=== PATIENT | female | born 1995 | race American Indian/Alaskan Native ===

== ENCOUNTER 2021-04-26 17:06 | Emergency (ER) | payer OTHER ==
[2021-04-26 17:25] VITALS: BP 122/80
[2021-04-26] MEDS ORDERED: LIDOCAINE (1%) 10 MG/1 ML VIAL 20 ML MDV INFILTRATI ONE (18:46)
--- NOTE | 2021-04-26 18:46 | Emergency Department Report ---
ED ENT HPI - General Chief complaint: Earache Stated complaint: EARRING EMBEDDED IN LEFT EAR Time Seen by Provider: 04/26/21 17:40 Source: patient Mode of arrival: Ambulatory Limitations: No Limitations - History of Present Illness Initial comments: 25-year-old female presents to the ER today complaining of pain to her left pinna where her piercing is. Patient states that she started noticing discomfort and pain to the area for about a week, today when she tried to remove the earring she was unable to remove it. She is concerned that the back of the earring is now embedded in the skin. She reports increased pain over the past week. She reports mild bleeding this morning but no apparent pus drainage. She states that this piercing she had for a long time and is not new. She reports no additional symptoms at this time. complaint: other (Pain to left pinna, embedded earring) -: week(s) - Related Data Previous Rx's Medication Instructions Recorded Last Taken Type Ibuprofen [Motrin] 600 mg PO Q8H PRN #30 tablet 04/26/21 Unknown Rx cephALEXin [Keflex] 500 mg PO Q6HR #40 capsule 04/26/21 Unknown Rx Allergies Allergy/AdvReac Type Severity Reaction Status Date / Time No Known Allergies Allergy Verified 04/26/21 17:25 ED Dental HPI - General Chief complaint: Earache Stated complaint: EARRING EMBEDDED IN LEFT EAR Time Seen by Provider: 04/26/21 17:40 Source: patient Mode of arrival: Ambulatory Limitations: No Limitations - Related Data Previous Rx's Medication Instructions Recorded Last Taken Type Ibuprofen [Motrin] 600 mg PO Q8H PRN #30 tablet 04/26/21 Unknown Rx cephALEXin [Keflex] 500 mg PO Q6HR #40 capsule 04/26/21 Unknown Rx Allergies Allergy/AdvReac Type Severity Reaction Status Date / Time No Known Allergies Allergy Verified 04/26/21 17:25 ED Review of Systems ROS: Stated complaint: EARRING EMBEDDED IN LEFT EAR Other details as noted in HPI Comment: All other systems reviewed and negative Constitutional: denies: chills, fever Eyes: denies: eye pain, eye discharge, vision change ENT: other (Left pinna pain, swelling, embedded earring). denies: ear pain, throat pain, dental pain, hearing loss, epistaxis Respiratory: denies: cough, shortness of breath, wheezing Cardiovascular: denies: chest pain, palpitations Gastrointestinal: denies: abdominal pain, nausea, diarrhea, constipation, hematemesis, hematochezia Genitourinary: denies: urgency, dysuria, frequency, hematuria, discharge, abnormal menses, dyspareunia Musculoskeletal: denies: back pain, joint swelling, arthralgia Skin: denies: rash, lesions, change in color, change in hair/nails, pruritus Neurological: denies: headache, weakness, numbness, paresthesias, confusion, abnormal gait, vertigo Psychiatric: denies: anxiety, depression, auditory hallucinations, visual hallucinations, homicidal thoughts Hematological/Lymphatic: denies: easy bleeding, easy bruising, swollen glands ED Past Medical Hx - Social History Smoking Status: Never Smoker Substance Use Type: None - Medications Home Medications: Home Medications Medication Instructions Recorded Confirmed Last Taken Type Ibuprofen [Motrin] 600 mg PO Q8H PRN #30 tablet 04/26/21 Unknown Rx cephALEXin [Keflex] 500 mg PO Q6HR #40 capsule 04/26/21 Unknown Rx ED Physical Exam - General Limitations: No Limitations General appearance: alert, in no apparent distress - Head Head exam: Present: atraumatic, normocephalic, normal inspection - Eye Eye exam: Present: normal appearance, PERRL, EOMI Pupils: Present: normal accommodation - ENT ENT exam: Present: other (Erring noted to the upper aspect of the pinna left ear there is mild swelling, erythema to the posterior aspect where the back of the earring is. The back clamp of the earring not visible, there is concerned that may be embedded in the piercing. Small amount of pus drainage noted.) - Neck Neck exam: Present: normal inspection, full ROM - Respiratory Respiratory exam: Present: normal lung sounds bilaterally. Absent: respiratory distress, wheezes, rales, rhonchi - Cardiovascular Cardiovascular Exam: Present: regular rate, normal rhythm, normal heart sounds - Neurological Exam Neurological exam: Present: alert, oriented X3, CN II-XII intact, normal gait - Psychiatric Psychiatric exam: Present: normal affect, normal mood ED Course Vital Signs 04/26/21 04/26/21 17:10 17:17 Temperature 98.4 F 97.7 F Pulse Rate 87 88 Respiratory 16 18 Rate Blood Pressure 112/63 122/80 Blood Pressure 122/80 [Left] O2 Sat by Pulse 98 99 Oximetry - Procedure Description Procedures done: Foreign body removal: back of stud earrings to Pinna left and right ear. Betadine used to cleanse the area. 1% lidocaine used and a size the areas. The back of the stud earring was then able to be pushed through the piercing and was clearly visualized and removed with forceps. Entire earring removed from the penis of both the left and the right ear without any difficulty. Patient tolerated procedure well without any complications. ED Medical Decision Making - Medical Decision Making Patient presented to the ER with pain, swelling, inability to remove her earring located in the pinna of the left ear. She also requested to have the one from the right ear removed as she noticed while she was in the room that she could not feel the back of the earring and it was also difficult to remove. Both earrings were removed successfully without any complication. There is concern for infection associated with the piercing to the right ear given that there was small amount of pus drainage, some redness and swelling. No streaking noted. Patient is afebrile, nontoxic and not in any significant distress. She will be started on oral antibiotics, wound care discussed with patient. She expressed understanding agree with plan. Patient was stable at time of discharge. Critical care attestation.: If time is entered above; I have spent that time in minutes in the direct care of this critically ill patient, excluding procedure time. ED Disposition Clinical Impression: Soft tissues foreign body, Ear piercing, Wound infection Disposition: 01 HOME / SELF CARE / HOMELESS Is pt being admited?: No Does the pt Need Aspirin: No Condition: Stable Instructions: Wound Infection, [id number], Wound Care, Adult Additional Instructions: I recommend taking the Keflex as prescribed. Take the ibuprofen as prescribed to help with pain. Keep the wound clean with soap and water. Do not use alcohol or peroxide. Apply a thin layer of Neosporin after each cleaning. I recommend no piercing of the area for at least 3 to 4 weeks. Follow-up closely with your PCP. Return to the ER if your symptoms changes or worsens in any way. Prescriptions: cephALEXin [Keflex] 500 mg PO Q6HR #40 capsule Ibuprofen [Motrin] 600 mg PO Q8H PRN #30 tablet PRN Reason: Pain Referrals: PRIMARY CARE, [Primary Care Provider] - 3-5 Days Time of Disposition: 20:04
[2021-04-26] MEDS ORDERED: NEOMY 3.5 MG/BACIT 400 UNITS/POLY B 5000 UNITS/GM OINT PACKET TP ONE (20:04)
== END 2021-04-26 20:27 | disposition home or self-care (01) ==
LOC: ED 17:06
DX: S00.452A Superficial foreign body of left ear, initial encounter (principal); S00.451A Superficial foreign body of right ear, initial encounter; Z41.3 Encounter for ear piercing; L08.9 Local infection of the skin and subcutaneous tissue, unspecified; X58.XXXA Exposure to other specified factors, initial encounter; Y93.89 Activity, other specified; Y92.89 Other specified places as the place of occurrence of the external cause; Y99.8 Other external cause status
CPT/HCPCS: 99283; J3490

== ENCOUNTER 2021-05-03 15:17 | Emergency (ER) | payer OTHER ==
--- NOTE | 2021-05-03 16:12 | XRay Report ---
XR elbow 3+V RT INDICATION / CLINICAL INFORMATION: trauma. COMPARISON: None available. FINDINGS: BONES/JOINT(S): The proximal radius appears to be dislocated posteriorly from the elbow joint. There is no appreciable fracture. No significant degenerative changes. SOFT TISSUES: No significant abnormality. ADDITIONAL FINDINGS: None. Signer Name: Rachid Prince MD Signed: 05/03/2021 4:07 PM Workstation Name: [id number]
[2021-05-03] MEDS ORDERED: ETOMIDATE 20 MG/10 ML INJ IV ONE (18:17)
[2021-05-03] MEDS ORDERED: SODIUM CHLORIDE 0.9% 1000 ML 1,000 ML IV ONE (18:27)
--- NOTE | 2021-05-03 18:38 | Emergency Department Report ---
ED Upper Extremity Inj HPI - General Chief Complaint: Extremity Injury, Upper Stated Complaint: SHOULDER PAIN Source: patient Mode of arrival: Ambulatory Limitations: No Limitations - History of Present Illness Initial Comments: This is a 25-year-old female presents emergency department complaint of elbow pain. Patient was had a mechanical fall and hit her right elbow on a corner. She reports pain to the elbow that radiates to her wrist. She denies any other injury. - Related Data Previous Rx's Medication Instructions Recorded Last Taken Type Ibuprofen [Motrin] 600 mg PO Q8H PRN #30 tablet 04/26/21 Unknown Rx cephALEXin [Keflex] 500 mg PO Q6HR #40 capsule 04/26/21 Unknown Rx Allergies Allergy/AdvReac Type Severity Reaction Status Date / Time No Known Allergies Allergy Verified 05/03/21 15:18 ED Review of Systems ROS: Stated complaint: SHOULDER PAIN Other details as noted in HPI Constitutional: no symptoms reported Eyes: denies: eye pain, eye discharge, vision change ENT: denies: ear pain, throat pain Respiratory: denies: cough, shortness of breath, wheezing Cardiovascular: denies: chest pain, palpitations Endocrine: no symptoms reported Gastrointestinal: denies: abdominal pain, nausea, diarrhea Genitourinary: denies: urgency, dysuria, discharge Musculoskeletal: denies: back pain, joint swelling, arthralgia Skin: denies: rash, lesions Neurological: denies: headache, weakness, paresthesias Psychiatric: denies: anxiety, depression Hematological/Lymphatic: denies: easy bleeding, easy bruising ED Past Medical Hx - Past Medical History Previous Medical History?: Yes Hx Psychiatric Treatment: Yes - Social History Smoking Status: Current Every Day Smoker - Medications Home Medications: Home Medications Medication Instructions Recorded Confirmed Last Taken Type Ibuprofen [Motrin] 600 mg PO Q8H PRN #30 tablet 04/26/21 Unknown Rx cephALEXin [Keflex] 500 mg PO Q6HR #40 capsule 04/26/21 Unknown Rx ED Physical Exam - General Limitations: No Limitations General appearance: alert, in no apparent distress - Head Head exam: Present: atraumatic, normocephalic - Eye Eye exam: Present: normal appearance - ENT ENT exam: Present: mucous membranes moist - Neck Neck exam: Present: normal inspection - Respiratory Respiratory exam: Present: normal lung sounds bilaterally. Absent: respiratory distress - Cardiovascular Cardiovascular Exam: Present: regular rate, normal rhythm. Absent: systolic murmur, diastolic murmur, rubs, gallop - GI/Abdominal GI/Abdominal exam: Present: soft, normal bowel sounds - Rectal Rectal exam: Present: deferred - Expanded Upper Extremity Exam Right Shoulder Exam: Present: normal inspection Elbow exam: Present: deformity, dislocation, pain w/ pronation/supination, tenderness over radial head Forearm Wrist exam: Present: normal inspection Hand Wrist exam: Present: normal inspection Neuro motor exam: Present: wrist extension intact Vascular: Present: normal capillary refill, radial pulse. Absent: vascular compromise - Back Exam Back exam: Present: normal inspection - Neurological Exam Neurological exam: Present: alert, oriented X3 - Psychiatric Psychiatric exam: Present: normal affect, normal mood - Skin Skin exam: Present: warm, dry, intact, normal color. Absent: rash ED Course Vital Signs 05/03/21 05/03/21 05/03/21 15:21 17:32 17:47 Temperature 98 F Pulse Rate 90 84 Respiratory 16 16 Rate Blood Pressure 117/72 108/61 [Right] O2 Sat by Pulse 98 97 Oximetry 05/03/21 19:40 Temperature 98.2 F Pulse Rate 62 Respiratory 18 Rate Blood Pressure 108/69 [Right] O2 Sat by Pulse 96 Oximetry - Reevaluation(s) Reevaluation #1: 05/03/21 23:00 Patient now awake alert ambulatory tolerating p.o. Will discharge at this time. Placed in sling. - Consultations Consultation #1: 05/03/21 18:[address] Pepper. I discussed with Dr. Pepper who suggested attempting reduction with Versed. I attempted reduction as he requested however patient does note that her elbow has been out of place for about a week. Given this we were unable to successfully reduce and patient is to follow-up on Thursday in clinic with Dr. Pepper. Updates were given to Dr. Pepper after the attempted reduction and he was also told of the length of time the elbow has been out. - Moderate Sedation Indications: fracture/dislocation redu Presedation Evaluation: Patient is awake and alert. She has normal facial anatomy. She has normal vital signs. ASA Class: I Mallampati Airway Score: 1 Time of Last PO Intake: 12:00 Preparation: graphic engineer applied, pulse oximeter - Orthopedic Joint Reduction Joint #1 Consent Obtained: written consent Time Out Performed: Yes Side: right Joint Reduction Location: elbow Analgesia: moderate sedation Technique Used: traction/counter-traction, direct manipulation Post-Reduction Neuro Exam: intact Post-Reduction Vascular Exam: intact Post Reduction X-Ray Obtained: No Post Reduction X-Ray Results: not reduced Splint Applied: No Patient Tolerated Procedure: well Additional Comments: During procedure patient endorsed elbow had been out of place for days to a week. ED Medical Decision Making - Radiology Data Radiology results: report reviewed, image reviewed - Medical Decision Making This is a 25-year-old female who presents to emergency department complaint of right elbow pain. Patient had x-ray done in triage that notes a radial head dislocation. On exam patient is holding her arm in abduction, somewhat flexed. I maneuvered her arm at the elbow and she does have full range of motion at the elbow however the deformity persists. I plan to discuss with orthopedic surgery prior to possible sedation and reduction. Critical care attestation.: If time is entered above; I have spent that time in minutes in the direct care of this critically ill patient, excluding procedure time. ED Disposition Clinical Impression: Radial head dislocation Disposition: 01 HOME / SELF CARE / HOMELESS Is pt being admited?: No Does the pt Need Aspirin: No Condition: Stable Instructions: Elbow Dislocation Rehab-SportsMed, Elbow Dislocation, [id number] Referrals: PRIMARY CAREMD [Primary Care Provider] - 3-5 Days NOLVIA PEPPER MD [Staff Physician] - [facility] (Please call early Thursday morning so you can be seen same day or early next week.) Time of Disposition: 21:27
[2021-05-03] MEDS ORDERED: MIDAZOLAM 5 MG/5 ML INJ MDV IV ONE (20:09)
[2021-05-03] MEDS ORDERED: MIDAZOLAM 5 MG/5 ML INJ MDV IV NR (21:00)
[2021-05-04 05:35] VITALS: BP 110/67
== END 2021-05-03 23:15 | disposition home or self-care (01) ==
LOC: ED 15:17
DX: S53.004A Unspecified dislocation of right radial head, initial encounter (principal); F17.200 Nicotine dependence, unspecified, uncomplicated; W18.30XA Fall on same level, unspecified, initial encounter; Y93.89 Activity, other specified; Y92.89 Other specified places as the place of occurrence of the external cause; Y99.8 Other external cause status
CPT/HCPCS: 24600; 73080; 96361; 96374; 99283; J2250; J3490; J7030; Q0162